=== PATIENT | female | born 1950 | race Hispanic/Latino ===

== ENCOUNTER 2025-01-16 08:40 | Observation (INO) | payer BC ==
[2025-01-11 10:18] LABS: BASOPHILS % 0.7 % (0.0-1.0); EOSINOPHILS # (AUTO) 0.2 (0.0-0.4); EOSINOPHILS % 3.9 % (0.0-6.0); HEMATOCRIT 29.9 % (34.2-44.1); HEMOGLOBIN 9.9 g/dL (12.0-16.0); LYMPHOCYTES # (AUTO) 0.8 (1.0-3.2); LYMPHOCYTES % 17.7 % (18.0-39.1); MEAN CORPUSCULAR HEMOGLOBIN 30.7 pg (28-32); MEAN CORPUSCULAR HGB CONC 33.1 g/dL (31-35); MEAN CORPUSCULAR VOLUME 92.9 fL (81-99); MONOCYTES # (AUTO) 0.5 (0.2-0.8); NEUTROPHILS # (AUTO) 2.8 (2.1-6.9); NEUTROPHILS % 64.1 % (38.7-80.0); PLATELET COUNT 113 x10e3/uL (140-360); RED BLOOD COUNT 3.22 x10e6/uL (3.6-5.1); RED CELL DISTRIBUTION WIDTH 14.2 % (11.7-14.4)
[~2025-01-16] VITALS: Ht 144.8 cm; Wt 90.0 kg
[~2025-01-16 08:40] MED LIST: ADVAIR 500/501 EA INH; ALBUTEROL0.63 MG/3 NEB; ALENDRONATE SOD70 MG PO; ATENOLOL50 MG PO; CANDESARTAN-HC1 EAC1 PO; CANDESARTAN-HC1 EAC2 PO; CETIRIZINE HCL10 MG PO; FUROSEMIDE40 MG PO; GLIMEPIRIDE2 MG PO; HYOSCYAMINE SULFATE 0.5 MG/ML INJ ONE; LIDOCAINE HCL 2% LOCAL INJ 5 ML SDV VIAL INJ ONE; MONTELUKAST SOD10 MG PO; OMEPRAZOLE40 MG PO; ONDANSETRON HCL INJ 2MG/ML 2ML 2 MG/ML VIAL ONE; PRO AIR INH; PROPOFOL IV EMULSION 10 MG/ML 20 ML VIAL ONE; PROPOFOL IV EMULSION 50 ML IV ONE; TRULICITY3 MG/0.5 M SC
[2025-01-16] MEDS ORDERED: ACETAMINOPHEN 1000 MG/100 ML 100 ML IV ONE (10:15)
[2025-01-16] MEDS ORDERED: ROCURONIUM BROMIDE 1 ML IV ONE (10:15)
[2025-01-16] MEDS ORDERED: LIDOCAINE HCL 2% LOCAL INJ 5 ML SDV VIAL INJ ONE (10:15)
[2025-01-16] MEDS ORDERED: FENTANYL CITRATE/PF 100MCG/2 ML INJ ONE (10:15)
[2025-01-16] MEDS ORDERED: SEVOFLURANE INHAL SOLN 250 ML PEN BTL ONE (10:15)
[2025-01-16] MEDS ORDERED: PROPOFOL IV EMULSION 10 MG/ML 20 ML VIAL ONE (10:15)
[2025-01-16] MEDS ORDERED: ONDANSETRON HCL INJ 2MG/ML 2ML 2 MG/ML VIAL ONE (12:11)
[2025-01-16] MEDS ORDERED: DEXAMETHASONE SOD PHOS INJ 4 MG/ML SDV ONE (12:11)
[2025-01-16] MEDS ORDERED: SUGAMMADEX SODIUM 200 MG/2 ML VIAL IV ONE (12:38)
[2025-01-16] MEDS: LACTATED RINGER'S 1,000 ML ONE (12:41)
[2025-01-16] MEDS ORDERED: PHENYLEPHRINE HCL 1% 10 MG/ML VIAL ONE (13:08)
[2025-01-16] MEDS ORDERED: HYDROCODONE/APAP 7.5MG-325MG 1 EA TAB PO PRN (14:00)
[2025-01-16] MEDS ORDERED: ALBUTEROL SULF 0.083% NEB SOLN 3 ML NEB NEB PRN (14:00)
[2025-01-16] MEDS: ONDANSETRON HCL INJ 2MG/ML 2ML 2 MG/ML VIAL IV PRN (14:10)
[2025-01-16] MEDS: SODIUM CHLORIDE 0.9% 1000ML 1,000 ML IV SCH (16:30)
[2025-01-16 16:40] VITALS: BP 118/57; PULSE 66; RESP 18; TEMP 97.7; O2SAT 97
[2025-01-16 16:42] VITALS: BP 118/57; PULSE 66; RESP 18; TEMP 97.7; O2SAT 97
[2025-01-16] MEDS: HYDROMORPHONE 1MG/1ML INJ IV PRN (16:52)
[2025-01-16] MEDS: LEVOFLOXACIN 500MG/D5W 100ML 100 ML IV SCH (17:38)
[2025-01-16 19:23] VITALS: BP 104/53; PULSE 76; RESP 20; TEMP 97.6; O2SAT 99
[2025-01-16 21:00] VITALS: BP 104/53; PULSE 76; RESP 20; TEMP 97.6; O2SAT 99
[2025-01-16 23:12] VITALS: BP 126/56; PULSE 66; RESP 20; TEMP 97.9; O2SAT 95
[2025-01-16] MEDS: SALMETEROL/FLUTICASONE 500/50 INH SCH (23:39)
[2025-01-17 04:00] VITALS: BP 111/52; RESP 18; TEMP 98.1; O2SAT 98
[2025-01-17 05:45] LABS: BASOPHILS % 0.1 % (0.0-1.0); HEMATOCRIT 25.9 % (34.2-44.1); HEMOGLOBIN 8.2 g/dL (12.0-16.0); LYMPHOCYTES # (AUTO) 0.5 (1.0-3.2); LYMPHOCYTES % 6.1 % (18.0-39.1); MEAN CORPUSCULAR HEMOGLOBIN 29.8 pg (28-32); MEAN CORPUSCULAR HGB CONC 31.7 g/dL (31-35); MEAN CORPUSCULAR VOLUME 94.2 fL (81-99); MONOCYTES # (AUTO) 0.7 (0.2-0.8); MONOCYTES % 7.8 % (4.4-11.3); NEUTROPHILS # (AUTO) 7.6 (2.1-6.9); NEUTROPHILS % 85.1 % (38.7-80.0); PLATELET COUNT 127 x10e3/uL (140-360); RED BLOOD COUNT 2.75 x10e6/uL (3.6-5.1); RED CELL DISTRIBUTION WIDTH 13.8 % (11.7-14.4); WHITE BLOOD COUNT 8.92 x10e3/uL (4.8-10.8)
[2025-01-17 06:10] LABS: ALBUMIN 2.8 g/dL (3.5-5.0); ANION GAP 16.3 mmol/L (8-16); BILIRUBIN,TOTAL 1.9 mg/dL (0.2-1.2); CALCIUM 7.8 mg/dL (8.4-10.2); CREATININE, SERUM 0.91 mg/dL (0.57-1.11); POTASSIUM 4.3 mmol/L (3.5-5.1); TOTAL PROTEIN 5.6 g/dL (6.5-8.1)
[2025-01-17 07:33] VITALS: PULSE 83; RESP 18; O2SAT 94
[2025-01-17 07:40] VITALS: BP 114/54; PULSE 84; RESP 16; TEMP 98.3; O2SAT 100
[2025-01-17 08:06] VITALS: BP 114/54; PULSE 84; RESP 16; TEMP 98.3; O2SAT 100
[2025-01-17] MEDS: MONTELUKAST SODIUM 10 MG TAB PO SCH (09:25)
[2025-01-17] MEDS: GLIMEPIRIDE 2 MG TAB PO SCH (09:25)
[2025-01-17 09:26] VITALS: BP 114/54; PULSE 84
[2025-01-17] MEDS: ATENOLOL 50 MG TAB PO SCH (09:26)
[2025-01-17] MEDS: FUROSEMIDE 20 MG TAB PO SCH (09:26)
== END 2025-01-17 14:45 | disposition home or self-care (01) ==
LOC: OR 08:40 → MED/SURG2 15:45
PROVIDERS: ADMIT Surgery; ATTEND Surgery
DX: K80.10 Calculus of gallbladder with chronic cholecystitis without obstruction (principal); K74.69 Other cirrhosis of liver; K76.6 Portal hypertension; E11.9 Type 2 diabetes mellitus without complications; I10 Essential (primary) hypertension; Z01.812 Encounter for preprocedural laboratory examination; Z79.85 Long-term (current) use of injectable non-insulin antidiabetic drugs; J45.909 Unspecified asthma, uncomplicated
CPT/HCPCS: 36415 ×3; 47562; 80053; 82948 ×2; 85025 ×2; 88304; 94799; 99252; C1766; G0378 ×2; J0131; J1100; J1171 ×2; J1956; J1980; J2003 ×2; J2371; J2405 ×3; J2470 ×2; J2704 ×3; J3010; J7030; J7121

== ENCOUNTER 2025-02-10 16:14 | Emergency (ER) | payer BC ==
[~2025-02-10] VITALS: Ht 144.8 cm; Wt 81.6 kg
[~2025-02-10 16:14] MED LIST changes: -HYOSCYAMINE SULFATE 0.5 MG/ML INJ ONE; -LIDOCAINE HCL 2% LOCAL INJ 5 ML SDV VIAL INJ ONE; -ONDANSETRON HCL INJ 2MG/ML 2ML 2 MG/ML VIAL ONE; -PROPOFOL IV EMULSION 10 MG/ML 20 ML VIAL ONE; -PROPOFOL IV EMULSION 50 ML IV ONE
[2025-02-10 17:22] VITALS: PULSE 88; RESP 16; TEMP 98
[2025-02-10 17:44] LABS: BASOPHILS % 0.5 % (0.0-1.0); EOSINOPHILS % 2.6 % (0.0-6.0); LYMPHOCYTES % 16.5 % (18.0-39.1); MONOCYTES % 16.5 % (4.4-11.3); NEUTROPHILS % 63.6 % (38.7-80.0); RED CELL DISTRIBUTION WIDTH 13.9 % (11.7-14.4)
[2025-02-10 17:51] LABS: INR 1.1
[2025-02-10 17:56] LABS: EST GLOMERULAR FILTRATION RATE 62.0 ML/MIN (>=60)
[2025-02-10 18:49] VITALS: BP 126/56; PULSE 82; RESP 16; TEMP 98.9; O2SAT 97
== END 2025-02-10 19:04 | disposition home or self-care (01) ==
LOC: ER 18:14
DX: D64.9 Anemia, unspecified (principal); I10 Essential (primary) hypertension; E11.9 Type 2 diabetes mellitus without complications; K21.9 Gastro-esophageal reflux disease without esophagitis; Z88.0 Allergy status to penicillin
CPT/HCPCS: 36415; 80053; 82550; 84484; 85025; 85610; 85730; 86850; 86900; 99284

== ENCOUNTER → 2025-04-12 | Outpatient (REF) | payer BC ==
[~2025-04-12] MED LIST changes: +ALBUMIN 25% 12.5GM 50ML 150 ML IV ONE
[2025-04-12 10:06] LABS: BASOPHILS % 0.4 % (0.0-1.0); EOSINOPHILS % 2.2 % (0.0-6.0); LYMPHOCYTES % 18.5 % (18.0-39.1); MONOCYTES % 13.0 % (4.4-11.3); NEUTROPHILS % 65.5 % (38.7-80.0); RED CELL DISTRIBUTION WIDTH 19.1 % (11.7-14.4)
[2025-04-12 10:27] LABS: INR 1.24
== END ==
LOC: US 09:34
PROVIDERS: ATTEND Internal Medicine
DX: R06.02 Shortness of breath (principal); R18.8 Other ascites; K74.60 Unspecified cirrhosis of liver
CPT/HCPCS: 36415; 49083; 85025; 85610; 85730

== ENCOUNTER 2025-04-27 11:42 | Inpatient (IN) | payer BC ==
[2025-04-27] VITALS (8 sets, daily range): BP systolic 116–124; BP diastolic 56–64; PULSE 79–83; RESP 17–20; TEMP 97.8–98.2; O2SAT 99–100
[~2025-04-27] VITALS: Ht 144.8 cm; Wt 76.7 kg
[~2025-04-27 11:42] MED LIST changes: -ALBUMIN 25% 12.5GM 50ML 150 ML IV ONE
[2025-04-27 12:12] LABS: BASOPHILS % 0.3 % (0.0-1.0); EOSINOPHILS % 4.2 % (0.0-6.0); LYMPHOCYTES % 17.0 % (18.0-39.1); MONOCYTES % 10.2 % (4.4-11.3); NEUTROPHILS % 67.9 % (38.7-80.0); RED CELL DISTRIBUTION WIDTH 18.1 % (11.7-14.4)
[2025-04-27] MEDS ORDERED: SODIUM CHLORIDE FLUSH 10 ML SYR IV PRN (12:15)
[2025-04-27 12:52] LABS: INR 1.15
[2025-04-27] MEDS: SODIUM CHLORIDE 0.9% 250ML 250 ML IV ONE (12:59)
[2025-04-27 13:01] LABS: EST GLOMERULAR FILTRATION RATE 62.0 ML/MIN (>=60)
[2025-04-27] MEDS ORDERED: ONDANSETRON HCL INJ 2MG/ML 2ML 2 MG/ML VIAL IV PRN ×2 (14:00→17:15)
[2025-04-27] MEDS: SODIUM CHLORIDE 0.9% 1000ML 1,000 ML IV SCH (14:47)
[2025-04-27] MEDS: OCTREOTIDE ACETATE 500 MCG in SODIUM CHLORIDE 0.9% 250ML 249 ML IV SCH (14:47)
[2025-04-27] MEDS ORDERED: SPIRONOLACTONE50 MG PO (16:56)
[2025-04-27] MEDS ORDERED: FEROSUL325 MG PO (16:56)
[2025-04-27] MEDS ORDERED: FOLIC (16:56)
[2025-04-27] MEDS ORDERED: SIMETHICONE 80 MG CHEW PO PRN (17:15)
[2025-04-27] MEDS ORDERED: DOCUSATE SODIUM 100 MG CAP PO PRN (17:15)
[2025-04-27] MEDS ORDERED: ALBUTEROL/IPRATROPIUM 3 ML NEB NEB PRN (17:15)
[2025-04-27] MEDS ORDERED: POTASSIUM CHLORIDE 20 MEQ TAB CR PO PRN (17:15)
[2025-04-27] MEDS ORDERED: ACETAMINOPHEN 325 MG TAB PO PRN (17:15)
[2025-04-27] MEDS ORDERED: HYDRALAZINE HCL 20 MG/ML VIAL IV PRN (17:15)
[2025-04-27] MEDS ORDERED: DEXTROSE 50% SYRINGE 50 ML IV PRN (17:15)
[2025-04-27] MEDS ORDERED: BENZONATATE 100 MG CAP PO PRN (17:15)
[2025-04-27] MEDS: SALMETEROL/FLUTICASONE 500/50 INH SCH (17:15)
[2025-04-27] MEDS ORDERED: LIDOCAINE 4% PATCH TP PRN (17:15)
[2025-04-27] MEDS ORDERED: LACTULOSE10 GM/151 PO (18:45)
[2025-04-27] MEDS ORDERED: MELATONIN 5 MG TABLET PO PRN (21:00)
[2025-04-27 22:42] LABS: % IRON SATURATION 34 % (15-50)
[2025-04-28] VITALS (10 sets, daily range): BP systolic 111–135; BP diastolic 45–64; PULSE 79–89; RESP 17–20; TEMP 97.5–98.3; O2SAT 96–100
[2025-04-28 05:20] LABS: BASOPHILS % 0.3 % (0.0-1.0); EOSINOPHILS % 5.0 % (0.0-6.0); LYMPHOCYTES % 16.6 % (18.0-39.1); MONOCYTES % 12.7 % (4.4-11.3); NEUTROPHILS % 64.9 % (38.7-80.0); RED CELL DISTRIBUTION WIDTH 17.7 % (11.7-14.4)
[2025-04-28 06:09] LABS: EST GLOMERULAR FILTRATION RATE 75.0 ML/MIN (>=60)
[2025-04-28] MEDS: PANTOPRAZOLE SOD 40 MG TABEC PO SCH (09:55)
[2025-04-28] MEDS: LOSARTAN POTASSIUM 100 MG TAB PO SCH (09:55)
[2025-04-28] MEDS: ATENOLOL 50 MG TAB PO SCH (09:55)
[2025-04-29] VITALS (7 sets, daily range): BP systolic 111–139; BP diastolic 49–68; PULSE 65–86; RESP 15–20; TEMP 97.7–99; O2SAT 98–100
[2025-04-29 06:43] LABS: BASOPHILS % 0.6 % (0.0-1.0); EOSINOPHILS % 7.3 % (0.0-6.0); LYMPHOCYTES % 14.1 % (18.0-39.1); MONOCYTES % 14.1 % (4.4-11.3); NEUTROPHILS % 63.6 % (38.7-80.0); RED CELL DISTRIBUTION WIDTH 17.5 % (11.7-14.4)
[2025-04-29 07:25] LABS: EST GLOMERULAR FILTRATION RATE 77.0 ML/MIN (>=60)
[2025-04-29] MEDS: DIPHENHYDRAMINE HCL 25 MG CAP PO PRN (09:58)
[2025-04-29] MEDS: HYDROCORTISONE SOD SUCCINATE 100 MG VIAL IV ONE ×2 (12:48→16:46)
[2025-04-29] MEDS: DIPHENHYDRAMINE HCL INJ 50 MG/ML VIAL IV ONE ×2 (16:46)
[2025-04-29] MEDS ORDERED: IOPAMIDOL 370 MG/ML 100 ML INFUS..BTL INJ ONE (17:42)
[2025-04-30 05:24] VITALS: BP 130/62; PULSE 87; RESP 20; TEMP 97.7; O2SAT 99
[2025-04-30 08:00] VITALS: BP 129/61; PULSE 94; RESP 18; TEMP 98.8; O2SAT 100
[2025-04-30] MEDS ORDERED: HOME MEDICATION--PATIENTS OWN PO PRN (11:30)
[2025-04-30 12:21] VITALS: BP 109/67; PULSE 78; RESP 18; TEMP 98.1; O2SAT 100
[2025-04-30 16:44] VITALS: BP 124/65; PULSE 77; RESP 18; TEMP 98.1; O2SAT 100
[2025-04-30 18:23] LABS: BODY FLUID APPEARANCE CLOUDY; BODY FLUID COLOR YELLOW; BODY FLUID TYPE PERITONEAL
[2025-04-30 18:24] LABS: WBC,BODY FLUID 297 cells/uL
[2025-04-30 19:32] LABS: LYMPHOCYTES,BODY FLUID 36 %; MONO/MACROPHG,BODY FLUID 36 %; NEUTROPHILS,BODY FLUID 18 %; OTHER CELLS,BODY FLUID 10 %; TOTAL CELLS COUNTED (DIFF) 100
[2025-05-01 06:03] LABS: HEPATITIS A ANTIBODY IGM (P) Negative; HEPATITIS B CORE IGM (P) Negative; HEPATITIS B SURFACE AG (P) Negative
== END 2025-04-30 19:00 | disposition home or self-care (01) | DRG 433 ==
LOC: ER 11:49 → ERHOLD 13:55 → MED/SURG 16:33 → OBSVTOIN 04-28 14:14
PROVIDERS: ADMIT Internal Medicine; ATTEND Internal Medicine
PROC: 0W9G3ZZ Drainage of Peritoneal Cavity, Percutaneous Approach (ICD-10-PCS; principal; 2025-04-28)
DX: K74.69 Other cirrhosis of liver (principal); K62.5 Hemorrhage of anus and rectum; R18.8 Other ascites; K64.9 Unspecified hemorrhoids; R16.0 Hepatomegaly, not elsewhere classified; I10 Essential (primary) hypertension; E11.9 Type 2 diabetes mellitus without complications; Z68.36 Body mass index [BMI] 36.0-36.9, adult; Z79.84 Long term (current) use of oral hypoglycemic drugs; J45.909 Unspecified asthma, uncomplicated; Z71.3 Dietary counseling and surveillance; Z71.81 Spiritual or religious counseling; Z90.49 Acquired absence of other specified parts of digestive tract; Z90.5 Acquired absence of kidney; Z79.899 Other long term (current) drug therapy
CPT/HCPCS: 36415; 49083; 74170; 74470; 76705; 80048; 80053; 82040; 82105; 82607; 82746; 82948; 83540; 84466; 85014; 85018; 85025; 85045; 85610; 85730; 86850; 86900; 87070; 87205; 88112; 88305; 89051; 94664; 94799; 99284; G0378; J1200; J1720; J2353; J2470; J7030; J7050; Q9967